=== PATIENT | female | born 1960 | race Caucasian/White ===

== ENCOUNTER 2017-12-20 06:50 | Inpatient (IN) | payer OTHER ==
[~2017-12-20] VITALS: Ht 157.5 cm; Wt 74.4 kg
[2017-12-20 06:56] VITALS: Ht 157.5 cm; Wt 74.4 kg
[2017-12-20 07:30] LABS: BASOPHIL % 0.2 % (0-2); PLATELET COUNT 179 x10^3mcL (130-400)
[2017-12-20 08:06] LABS: RED CELL DISTRIBUTION WIDTH 16.8 % (11.5-14.5)
[2017-12-20 08:35] LABS: CALCIUM 8.4 mg/dL (8.5-10.1); CARBON DIOXIDE 28.3 mmol/L (21-32); CHLORIDE SERUM 106 mmol/L (98-107); CREATININE SERUM 0.7 mg/dL (0.6-1.0); GFR1 > 60 mL/min; GLUCOSE SERUM 208 mg/dL (74-106); POTASSIUM SERUM 4.5 mmol/L (3.5-5.1); SODIUM SERUM 139 mmol/L (136-145)
[2017-12-20 08:39] LABS: ALKALINE PHOSPHATASE 64 U/L (46-116); ALT/SGPT 20 U/L (14-59); AST/SGOT 16 U/L (15-37); BILIRUBIN TOTAL 0.4 mg/dL (0.20-1.00); PHOSPHOROUS 3.4 mg/dL (2.5-4.9)
[2017-12-20 08:44] LABS: ALBUMIN 2.8 g/dL (3.4-5.0); CHOLESTEROL 111 mg/dL (<200); HDL CHOLESTEROL 34 mg/dL (40-60)
[2017-12-20] MEDS ORDERED: LEVOTHYROXINE0.1 M2 PO (09:05)
[2017-12-20] MEDS ORDERED: CLARITIN10 MG PO (09:06)
[2017-12-20 10:04] VITALS: BP 113/58
[2017-12-20 10:25] LABS: MAGNESIUM 1.8 mg/dL (1.8-2.4)
[2017-12-20 10:26] LABS: CHOLESTEROL/HDL RATIO 3.2
[2017-12-20 10:46] LABS: FREE T4 0.9 ng/dL (0.76-1.46); FREE THYROXINE INDEX 2.3 ug/dL (1.4-4.5); T4(THYROXINE) 7.1 ug/dL (4.7-13.3)
[2017-12-20 11:08] LABS: T3 TOTAL 0.58 ng/mL
[2017-12-20 11:39] LABS: microscopic required? YES; urine erythrocyte NEGATIVE (NEGATIVE)
[2017-12-20 12:31] VITALS: BP 106/68
[2017-12-20 12:33] LABS: TOTAL IRON BINDING CAPACITY 277 ug/dL (250-450)
[2017-12-20 12:38] LABS: AMPHETAMINE QUAL UR NONE DETECTED (NEG <=1000)
[2017-12-20 12:44] LABS: IRON 23 ug/dL (50-170)
[2017-12-20 16:55] VITALS: BP 94/50
[2017-12-20 21:02] VITALS: BP 99/61
[2017-12-21 00:01] LABS: RED BLOOD CELLS 2.92 M/mm3 (4.10-5.10)
[2017-12-21 05:31] VITALS: BP 108/65
[2017-12-21 07:23] LABS: CALCIUM 7.9 mg/dL (8.5-10.1); CARBON DIOXIDE 24.2 mmol/L (21-32); CHLORIDE SERUM 106 mmol/L (98-107); CREATININE SERUM 0.7 mg/dL (0.6-1.0); GFR1 > 60 mL/min; GLUCOSE SERUM 136 mg/dL (74-106); POTASSIUM SERUM 3.9 mmol/L (3.5-5.1); SODIUM SERUM 137 mmol/L (136-145)
[2017-12-21 08:22] LABS: BASOPHIL % 0.4 % (0-2)
[2017-12-21 08:25] LABS: PLATELET COUNT 124 x10^3mcL (130-400)
[2017-12-21 12:16] LABS: rbc morphology (normal/abnorm) ABNORMAL (NORMAL)
[2017-12-21 12:17] LABS: schistocyte (helmet cell) 1+
[2017-12-21 13:00] VITALS: BP 123/79
[2017-12-21 16:57] VITALS: BP 102/64
[2017-12-21 17:17] LABS: BASOPHIL % 0.3 % (0-2); PLATELET COUNT 133 x10^3mcL (130-400)
[2017-12-21 21:22] VITALS: BP 122/75
[2017-12-22 06:03] VITALS: BP 106/60
[2017-12-22 06:22] LABS: BASOPHIL % 0.2 % (0-2); PLATELET COUNT 142 x10^3mcL (130-400)
[2017-12-22 06:40] LABS: CALCIUM 7.9 mg/dL (8.5-10.1); CARBON DIOXIDE 27.4 mmol/L (21-32); CHLORIDE SERUM 102 mmol/L (98-107); CREATININE SERUM 0.8 mg/dL (0.6-1.0); GFR1 > 60 mL/min; GLUCOSE SERUM 162 mg/dL (74-106); POTASSIUM SERUM 3.7 mmol/L (3.5-5.1); SODIUM SERUM 135 mmol/L (136-145)
[2017-12-22 07:41] LABS: RED CELL DISTRIBUTION WIDTH 16.1 % (11.5-14.5)
[2017-12-22 09:59] VITALS: BP 117/78
[2017-12-22 14:56] VITALS: BP 117/72
[2017-12-22 18:26] VITALS: BP 86/49
[2017-12-22 21:29] VITALS: BP 100/64
[2017-12-23 06:21] LABS: BASOPHIL % 0.3 % (0-2); PLATELET COUNT 145 x10^3mcL (130-400)
[2017-12-23 06:28] VITALS: BP 85/59
[2017-12-23 06:39] LABS: RED CELL DISTRIBUTION WIDTH 16.6 % (11.5-14.5)
[2017-12-23 06:40] LABS: CALCIUM 8.1 mg/dL (8.5-10.1); CARBON DIOXIDE 28.3 mmol/L (21-32); CHLORIDE SERUM 105 mmol/L (98-107); CREATININE SERUM 0.9 mg/dL (0.6-1.0); GFR1 > 60 mL/min; GLUCOSE SERUM 162 mg/dL (74-106); SODIUM SERUM 139 mmol/L (136-145)
[2017-12-23 11:11] VITALS: BP 97/61
[2017-12-23] MEDS ORDERED: IND10 PO (11:47)
[2017-12-23] MEDS ORDERED: LAC30L PO (11:47)
[2017-12-23] MEDS ORDERED: FER300 PO (11:47)
[2017-12-23] MEDS ORDERED: VITC PO (12:19)
[2017-12-23] MEDS ORDERED: PROTONIX40 MG PO (12:27)
[2017-12-23] MEDS ORDERED: MECLIZINE HYD12.5 MG PO (12:28)
[2017-12-23 13:04] VITALS: BP 97/61
[2017-12-23 13:44] VITALS: BP 92/58
== END 2017-12-23 16:05 | disposition home or self-care (01) ==
LOC: ED 06:50 → DU 09:29
PROVIDERS: Emergency Medicine; Family Medicine; Internal Medicine Gastroenterology
PROC: 30233N1 Transfusion of Nonautologous Red Blood Cells into Peripheral Vein, Percutaneous Approach (ICD-10-PCS; principal; 2017-12-21 09:00)
PROC: 0DB68ZX Excision of Stomach, Via Natural or Artificial Opening Endoscopic, Diagnostic (ICD-10-PCS; 2017-12-21 09:00)
PROC: 0DB68ZZ Excision of Stomach, Via Natural or Artificial Opening Endoscopic (ICD-10-PCS; 2017-12-21 09:00)
PROC: 06L38CZ Occlusion of Esophageal Vein with Extraluminal Device, Via Natural or Artificial Opening Endoscopic (ICD-10-PCS; 2017-12-21 09:00)
DX: K74.69 Other cirrhosis of liver (principal); N17.0 Acute kidney failure with tubular necrosis; I85.11 Secondary esophageal varices with bleeding; E44.0 Moderate protein-calorie malnutrition; E11.65 Type 2 diabetes mellitus with hyperglycemia; S09.90XA Unspecified injury of head, initial encounter; K76.6 Portal hypertension; E03.9 Hypothyroidism, unspecified; E11.9 Type 2 diabetes mellitus without complications; D64.9 Anemia, unspecified; R55 Syncope and collapse; X58.XXXA Exposure to other specified factors, initial encounter; K31.89 Other diseases of stomach and duodenum; K31.7 Polyp of stomach and duodenum; K80.20 Calculus of gallbladder without cholecystitis without obstruction; G98.8 Other disorders of nervous system; K76.0 Fatty (change of) liver, not elsewhere classified; Z68.31 Body mass index [BMI] 31.0-31.9, adult; Y93.89 Activity, other specified; Y92.89 Other specified places as the place of occurrence of the external cause; Y99.8 Other external cause status
CPT/HCPCS: 43235; 82962; 83880; 84439; C9113; J0696; J1200; J1610; J2250; J2310; J2354; J2405; J2916; J3010; J3490; J7030; J7050; P9016; Q0092; Q0163

== ENCOUNTER 2019-03-26 09:43 | Inpatient (IN) | payer OTHER ==
[~2019-03-26] VITALS: Ht 152.4 cm; Wt 82.1 kg
[~2019-03-26 09:43] MED LIST: CLARITIN10 MG PO; FER300 PO; IND10 PO; LAC30L PO; LEVOTHYROXINE0.1 M2 PO; MECLIZINE HYD12.5 MG PO; PROTONIX40 MG PO; VITC PO
[2019-03-26 09:46] VITALS: Ht 152.4 cm; Wt 82.1 kg
--- NOTE | 2019-03-26 09:58 | NUR ---
PT BROUGHT IN BY [facility] WITH C/O HEMATEMESIS THIS AM. AT BEDSIDE PT IS AAOX4. RESPS E/U. SKIN IS PINK, WARM AND DRY. PERRLA. PT PLACED ON MONITOR. BED RAILS UP X1 FOR SAFETY. PT ORIENTED TO ROOM, USE OF CALL SAM AND BED IN LOWEST POSITION. PT IS CALM AND COOPERATIVE. PT AMBULATED FROM GURNEY TO ED BED WITH STEADY GAIT. PT AWAITING MSE.
[2019-03-26 10:40] LABS: BASOPHIL % 0.3 % (0-2)
[2019-03-26 10:45] LABS: CALCIUM 8.2 mg/dL (8.5-10.1); CARBON DIOXIDE 23.3 mmol/L (21-32); CHLORIDE SERUM 108 mmol/L (98-107); CREATININE SERUM 0.8 mg/dL (0.6-1.0); GFR1 > 60 mL/min; GLUCOSE SERUM 178 mg/dL (74-106); POTASSIUM SERUM 4.1 mmol/L (3.5-5.1); SODIUM SERUM 141 mmol/L (136-145)
[2019-03-26 10:49] LABS: PLATELET COUNT 123 x10^3mcL (130-400); RED CELL DISTRIBUTION WIDTH 15.6 % (11.5-14.5)
[2019-03-26 10:50] LABS: ALKALINE PHOSPHATASE 63 U/L (46-116); ALT/SGPT 20 U/L (14-59); AST/SGOT 23 U/L (15-37); BILIRUBIN TOTAL 0.4 mg/dL (0.20-1.00); LIPASE 163 IU/L (73-393); TOTAL PROTEIN, SERUM 7.4 g/dL (6.4-8.2)
--- NOTE | 2019-03-26 11:57 | NUR ---
PT RESTING IN POSITION OF COMFORT. NO ACUTE DISTRESS NOTED, RESPS E/U, SKIN IS PINK, WARM AND DRY. WILL CONTINUE TO MONITOR.
--- NOTE | 2019-03-26 12:08 | NUR ---
HAND-OFF REPORT TO NILSA CA FROM ICU
--- NOTE | 2019-03-26 12:30 | NUR ---
RECEIVED PT FROM ED BY ROBERTA WITH ED NURSE AT BEDSIDE. PT IS AA/O X 4. LUXEMBOURGISH SPEAKING. PT REPORTED VOMITED X 2 WITH "MODERATE BLOOD". PT COMPLAINED RLQ ABD PAIN 4/10. PT BREATHING ON RA, EVEN, UNLABORED. VS: HR 79, BP 101/56, O2 SAT 99% RA, RR 16. WILL CONTINUE TO MONITOR.
[2019-03-26 12:35] LABS: CHOLESTEROL/HDL RATIO 3.9
[2019-03-26 12:52] VITALS: BP 101/56
--- NOTE | 2019-03-26 13:43 | NUR ---
SANDOSTATIN DRIP AND PROTONIX DRIP INTIATED AT THIS TIME PER MD ORDER. WILL CONT TO MONITOR
[2019-03-26 15:14] LABS: microscopic required? NO
[2019-03-26 15:21] LABS: urine erythrocyte NEGATIVE (NEGATIVE)
[2019-03-26 16:22] VITALS: BP 95/55
[2019-03-26 16:22] LABS: CALCIUM 8.1 mg/dL (8.5-10.1); CARBON DIOXIDE 20.9 mmol/L (21-32); CHLORIDE SERUM 111 mmol/L (98-107); CREATININE SERUM 0.7 mg/dL (0.6-1.0); GFR1 > 60 mL/min; GLUCOSE SERUM 143 mg/dL (74-106); POTASSIUM SERUM 4.3 mmol/L (3.5-5.1); SODIUM SERUM 143 mmol/L (136-145)
--- NOTE | 2019-03-26 16:22 | NUR ---
SPOKE WITH ROD VALADEZ AND PROVIDED PATIENT UPDATE. AWAITING RECENT LAB DRAW RESULTS BEFORE ANY NEW ORDERS.
--- NOTE | 2019-03-26 16:45 | NUR ---
SPOKE WITH DR BARKLEY AND REPORTED MOST RECENT LABS. PATIENT TO HAVE EGD TOMORROW AT 1200PM. PATIENT OKAY TO HAVE CLEAR LIQUIDS FOR DINNER AND THEN NPO AT MIDNIGHT. WILL ENDORSE TO PRIMARY RN'S CAMILO.
--- NOTE | 2019-03-26 17:54 | NUR ---
PT REQUESTING TYLENOL FOR ABDOMINAL PAIN, MEDICATED PER EMAR. WILL CONT TO MONITOR
--- NOTE | 2019-03-26 18:47 | NUR ---
PT RESTING IN BED WITH NO APPARENT SIGNS OF DISTRESS. RESPIRATIONS E/U. ON RA, DENIES SOB. NO RESP DISTRESS NOTED. NSR ON MONITOR. PT DENIES CP. ABDOMEN SOFT AND TENDER TO RLQ. PT DENIES VOMITING AT THIS TIME. PT AMBULATORY TO BSC WITH ASSIST. PT ABLE TO REPOSITION SELF. SKIN W/D/I. RAC AND LFA IV IN PLACE, NO ERYTHEMA/INFLAMMATION/DISCOMFORT NOTED. SANDOSTATIN INFUSING AT 25ML/HR AND PROTONIX INFUSING AT 10ML/HR. PT TOLERATING WELL. BED IN LOWEST POSITION. WILL ENDORSE TO ANVILSMITH RN
--- NOTE | 2019-03-26 19:22 | NUR ---
RECIEVED PATIENT AT START OF SHIFT A/O X4. IRISH SPEAKING, FAMILY AT BEDSIDE. PATIENT FOLLOWS COMMANDS, STRENGTH SYMETRICAL. PUPILS +3 PERRLA. NO SOB NOTED ON RA, LUNGS ARE CTAB, CHEST RISE SYMETRICAL SATTING 99%. DENIES COUGH. ON SPEECH LANGUAGE ASSISTANT 1 NSR, NSR 68. NO MURMOR AUSCULTATED. DENIES CHEST PAIN. PULSES ARE MODERATE, NO EDEMA NOTED, CAP REFILL BRISK, SKIN IS WARM DRY AND INTACT. IV TO LFA AND RAC ARE WNL, CDI. PROTONIX INFUSING AT 10 ML/HR, ANTONIA AT 25 ML/HR, AND NS AT 100ML/HR. ABDOMEN IS SOFT AND ROUND, BS ACTIVE. NO TENDERNESS TO PALPATION. PATIENT IS CALM AND COOPERATIVE. BED LOCKED AND IN LOWEST POSITION. CALL LIGHT AND BEDSIDE TABLE WITHIN REACH.
[2019-03-26 20:00] VITALS: BP 107/61
[2019-03-27] VITALS (7 sets, daily range): BP systolic 86–123; BP diastolic 48–78
[2019-03-27 05:06] LABS: CALCIUM 8.2 mg/dL (8.5-10.1); CHLORIDE SERUM 111 mmol/L (98-107); CREATININE SERUM 0.8 mg/dL (0.6-1.0); GFR1 > 60 mL/min; GLUCOSE SERUM 144 mg/dL (74-106); POTASSIUM SERUM 3.9 mmol/L (3.5-5.1); SODIUM SERUM 143 mmol/L (136-145)
[2019-03-27 05:29] LABS: BASOPHIL % 0.5 % (0-2)
[2019-03-27 05:30] LABS: PLATELET COUNT 95 x10^3mcL (130-400); RED CELL DISTRIBUTION WIDTH 15.6 % (11.5-14.5)
--- NOTE | 2019-03-27 06:47 | NUR ---
PATIENT IS AWAKE, A/O X4, NO SOB ON RA SATTING 97%, NSR 68, DENIES PAIN. NO BMS THIS SHIFT. IV TO LFA AND RAC ARE PATENT AND INTACT. PROTONIX INFUSING AT 10 ML/HR, ANTONIA AT 25 ML/HR, AND NS AT 100 ML/HR. SAFETY AND COMFORT MAINTAINED THROUGH OUT SHIFT. CALL LIGHT AND BEDSIDE TABLE WITHIN REACH. WILL ENDORSE CARE TO DAYSHIFT NURSE.
--- NOTE | 2019-03-27 07:10 | NUR ---
RECIEVED REPORT FROM SUPRIYA ASH. ALL QUESTIONS ANSWERED AND ADDRESSED. RECIEVED PT AAOX4. ABLE TO FOLLOW COMMANDS. RESPONDS TO VERBAL, TACTILE, AND PAINFUL STIMULUS. NO FACIAL DROOP NOTED. SPEECH IS CLEAR AND APPROPRIATE. PERRL. ON ROOM AIR. BREATHING E/U. SYMMETRICAL CHEST WALL EXPANSION NOTED. NO S/S OF RESP DISTRESS NOTED. SKIN IS WARM/DRY TO TOUCH, PEGUERO/BROWN IN COLOR. NO S/S OF CP NOTED. PALPABLE PULSES X4. TRACE EDEMA NOTED TO BLE. PIV TO LFA AND RAC INTACT, PORTS PATENT, DRESSINGCDI. NS INFUSING @ 100ML/HR, SANDOSTATIN @ 25 ML/HR, PROTONIX @ 10 ML/HR. ABD IS TENDER AND ROUNDED. NO N/V AT THIS TIME. SKIN INTACT. NO OPEN WOUNDS NOTED. JOINTS INTACT. NO CONTRACTURES. X3 SIDE RAILS UP, BED IN LOWEST POSITION, CALL LIGHT WITHIN REACH.
--- NOTE | 2019-03-27 09:07 | NUR ---
GI TEAM AT BEDSIDE PREPARING FOR EGD.
--- NOTE | 2019-03-27 09:37 | NUR ---
EGD COMPLETED BY DR. LARSEN AT THIS TIME.
--- NOTE | 2019-03-27 10:09 | NUR ---
PER DR. LARSEN PT CLEARED FOR MST TRANSFER, WILL NOTIFY COVERING CUTTING INSPECTOR ROD. PRIMARY RN AWARE.
--- NOTE | 2019-03-27 16:15 | NUR ---
REPORT GIVEN TO ROLY FOR TRANSFER TO MED-SURG BED 204-B. ALL QUESTIONS ANSWERED AND ADDRESSED. WILL ENDORSE CARE.
--- NOTE | 2019-03-27 16:24 | NUR ---
PT TRANSFERRED TO 203B VIA WHEELCHAIR ACCOMPANIED BY STUDENT RN AND YVONNE RN. VS STABLE. NO SOB OR CP STATED. NO COMPLICATIONS AT THIS TIME.
--- NOTE | 2019-03-27 16:46 | NUR ---
RECEIVED PT AAOX4. RESP EVEN AND UNLABORED. LUNG SOUNDS CTA. NO COUGH OR SOB. NORMAL S1S2 NOTED. ABDOMEN SOFT, ROUND, NONDISTENDED, TENDER UPON PALPATION. PT DENIES N/V. SKIN CDI. NO EDEMA NOTED. PERIPHERAL PULSES MODERATELY PALPABLE. DENIES NUMBNESS AND TINGLING. IV CATH TO [facility] PATENT, SITE WNL. SANDOSTATIN RUNNING TO [facility] AT 25ML/HR. IVF RUNNING TO [facility], SITE WNL. PT DENIES PAIN AND DISCOMFORT AT THIS TIME. PT ORIENTED TO ROOM AND CALL LIGHT. SCDS IN PLACE. CALL LIGHT WITHIN REACH. BED IN LOWEST POSITION.
--- NOTE | 2019-03-27 17:06 | NUR ---
RESP EVEN AND UNLABOERED. DUE MEDS GIVEN AND TOLERATED WELL. B/P 120/72, HR 79. PT DENIES PAIN AT THIS TIME. CALL LIGHT WITHIN REACH.
--- NOTE | 2019-03-27 17:14 | NUR ---
RECEIVED PT AAOX4. RESP EVEN AND UNLABORED. LUNG SOUNDS CTA. NO COUGH OR SOB. NORMAL S1S2 NOTED. ABDOMEN SOFT, ROUND, NONDISTENDED, TENDER UPON PALPATION. PT DENIES N/V. SKIN CDI. NO EDEMA NOTED. PERIPHERAL PULSES MODERATELY PALPABLE. DENIES NUMBNESS AND TINGLING. IV CATH TO [facility] PATENT, SITE WNL. SANDOSTATIN RUNNING TO [facility] AT 25ML/HR. IVF RUNNING TO [facility], SITE WNL. PT DENIES PAIN AND DISCOMFORT AT THIS TIME. PT ORIENTED TO ROOM AND CALL LIGHT. SCDS IN PLACE. CALL LIGHT WITHIN REACH. BED IN LOWEST POSITION.
--- NOTE | 2019-03-27 18:42 | NUR ---
PT IS AAOX4. RESP EVEN AND UNLABORED. PT HAS C/O BLOOD STOOL. DR. LARSEN MADE AWARE. DENIES PAIN AND DISCOMFORT. IV CATH TO RAC PATENT, SITE WNL. IV CATH TO LFA PATENT SITE WNL. NO DISTRESS NOTED. FAMILY AT BEDSIDE. CALL LIGHT WITHIN REACH. BED IN LOWEST POSITION. WILL ENDORSE ALL CARE TO NOC RN.
--- NOTE | 2019-03-27 19:30 | NUR ---
PT SEEN, RESTING IN BED, ALERT AND ORIENTED X 4 AND VERY VERBALLY RESPONSIVE, MOSTLY RUSSIAN SPEAKING, DENIES HEADACHE OR DIZZINESS, BREATHING EVEN AND UNLABORED, LUNG SOUNDS CLEAR, ON ROOM AIR WITH NO RESP DISTRESS NOTED, IVF INFUSING WELL, SANDOSTATIN @ 25 ML/HR, PULSES PALPABLE, NO EDEMA NOTED, AMBULATORY WITH STEADY GAIT, ABD SOFT WITH ACTIVE BS, NO BM AT THIS TIME, DENIES ABD PAIN, VOIDING FREELY, NO DISTRESS NOTED, WILL KEEP TO MONITOR.
[2019-03-28 05:28] VITALS: BP 110/64
--- NOTE | 2019-03-28 05:40 | NUR ---
PT ASLEEP BUT EASILY AROUSABLE, SLEPT ON AND OFF WHOLE NIGHT, IVF INFUSING WELL TO RAC, SANDOSTATIN DRIP INFUSING @ 25 ML/HR, OLD IV SITE TO LFA INFILTRATED, IV DC'D AND CATH INTACT, NO BLOODY STOOL NOTED DURING THE SHIFT, MORNING BLOOD SUGAR- 148 MG/DL, NPO NOW FOR US ABD, NO DISTRESS NOTED, WILL KEEP TO MONITOR.
[2019-03-28 06:21] LABS: CALCIUM 8.5 mg/dL (8.5-10.1); CARBON DIOXIDE 28.6 mmol/L (21-32); CHLORIDE SERUM 110 mmol/L (98-107); CREATININE SERUM 0.8 mg/dL (0.6-1.0); GFR1 > 60 mL/min; GLUCOSE SERUM 151 mg/dL (74-106); POTASSIUM SERUM 3.6 mmol/L (3.5-5.1); SODIUM SERUM 144 mmol/L (136-145)
[2019-03-28 06:26] LABS: PLATELET COUNT 109 x10^3mcL (130-400); RED CELL DISTRIBUTION WIDTH 15.9 % (11.5-14.5)
--- NOTE | 2019-03-28 07:27 | NUR ---
PT SEEN, RESTING IN BED, ALERT AND ORIENTED X 4 AND VERY VERBALLY RESPONSIVE, MOSTLY [place] SPEAKING, DENIES HEADACHE OR DIZZINESS, BREATHING EVEN AND UNLABORED, LUNG SOUNDS CLEAR, ON ROOM AIR WITH NO RESP DISTRESS NOTED, IVF INFUSING WELL, SANDOSTATIN @ 25 ML/HR, PULSES PALPABLE, NO EDEMA NOTED, AMBULATORY WITH STEADY GAIT, ABD SOFT WITH ACTIVE BS, NO BM AT THIS TIME, DENIES ABD PAIN, VOIDING FREELY, NO DISTRESS NOTED, WILL KEEP TO MONITOR.
[2019-03-28 08:54] VITALS: BP 123/76
--- NOTE | 2019-03-28 12:07 | NUR ---
BEDSIDE HANDOFF REPORT GIVEN TO JAYME-RN, ALL QUESTIONS ANSWERED AND CONCERNS ADDRESSED.
--- NOTE | 2019-03-28 12:18 | NUR ---
ASSUMED CARE OF PATIENT. PT AWAKE, ALERT. A/OX4. PT REPORTS HEADACHE 4/10 TYLENOL ADMINISTERED ORDERED PRN (SEE EMAR). DUE MEDS ADMINISTERED ORDERED. PT REPORTS PAIN FROM PROCEDURE IN THROAT. WILL CONTINUE TO MONITOR.
--- NOTE | 2019-03-28 13:30 | NUR ---
PT SLEEPING AT THIS TIME. NO DISCOMFORT NOTED.
[2019-03-28 16:55] VITALS: BP 108/78
--- NOTE | 2019-03-28 17:34 | NUR ---
DUE MEDS ADMINISTERED ORDERED. INDERAL HELD DUE TO LOW BP. FAMILY AT BEDSIDE. PT REPORTS PAIN IN ESOPHAGUS WHEN SWALLOWING. PT REPORTS PAIN IN ABDOMEN 4/10 BUT TOLERABLE AT THIS TIME. WILL CONTINUE TO MONITOR.
--- NOTE | 2019-03-28 18:24 | NUR ---
NO ACUTE DISTRESS NOTED AT THIS TIME. ALL NEEDS TENDED TO THROUGHOUT SHIFT. WILL CONTINUE TO MONITOR AND ENDORSE CARE TO DIRECTOR BUSINESS DEVELOPMENT.
--- NOTE | 2019-03-28 20:05 | NUR ---
PATIENT RECEIVED DURING BEDSIDE HANDS OFF WITH OUT GOING NURSE, PATIENT IS ALERT AND ORIENTED X4, SPEECH CLEAR VIETNAMESE SPEAKING BUT ABLE TO VERBALIZED NEEDS. DENIED ANY PAIN NOR DISCOMFORTS. RT FA HEPLOCK SITE NOTED CATH ALMOST OUT, REMOVED AND WILL INSERT NEW SITE.ABDOMEN SOFT NON DISTENDE ACTIVE BS ALL QUAD, PATIENT CLAIMED HAD BM TODAY BUT NO NOTED BLOOD, TOLERATING DIET, DNEIES N/V. ON ROOM AIR . DENIED CHEST PAINS, HR=83BPM. NON TELE APTIENT, MED/SURG. WILL CONTINUE TO MONITOR.
[2019-03-28 20:11] VITALS: BP 122/76
--- NOTE | 2019-03-28 21:46 | NUR ---
SCHEDULED MEDS ADMINISTERED,PATIENT INFORMED ABOUT EACH MEDS ACTIONS AND PURPOSES PRIOR. TOOK PILLS WELL.
[2019-03-29 05:50] VITALS: BP 117/66
[2019-03-29 06:24] LABS: BASOPHIL % 0.3 % (0-2)
--- NOTE | 2019-03-29 06:33 | NUR ---
PATIENT SLEPT GOOD AND RESTED WELL DURING THE SHIFT, HAD COMPLAINED OF HEMORROIDAL PAIN THIS AM, TYLENOL 2 TABS PO GIVEN. AMBULATORY WITH STEADY GAIT. MOVED HER BOWEL DURING SHIFT DESCRIBED IT LOOSE BROWN NO BLOOD.SAFETY PRECAUTIONS OBSERVED. WILL ENDORSE CONTINUITY OF CARE TO INCOMING NURSE.
[2019-03-29 06:42] LABS: CALCIUM 8.6 mg/dL (8.5-10.1); CARBON DIOXIDE 25.4 mmol/L (21-32); CHLORIDE SERUM 107 mmol/L (98-107); CREATININE SERUM 0.7 mg/dL (0.6-1.0); GFR1 > 60 mL/min; GLUCOSE SERUM 136 mg/dL (74-106); POTASSIUM SERUM 3.3 mmol/L (3.5-5.1); SODIUM SERUM 143 mmol/L (136-145)
[2019-03-29 06:54] LABS: PLATELET COUNT 112 x10^3mcL (130-400); RED CELL DISTRIBUTION WIDTH 15.3 % (11.5-14.5)
--- NOTE | 2019-03-29 07:29 | NUR ---
BEDSIDE HANDS OFF PERFORMED WITH INCOMING NURSE SEJAL-NILSA.
--- NOTE | 2019-03-29 07:30 | NUR ---
RECEIVED PATIENT RESTING IN BED COMFORTABLY A/O X4, CLEAR SPEECH, NO NEURO DEFICITS NOTED. BREATHING EVEN AND UNLABBORED ON ROOM AIR, DENIES SOB, NO DISTRESS NOTED, DENIES ANY PAIN. IV TO RFA H/L INTACT AND PATENT FREE FROM REDNESS AND INFILTRATION. PATIENT IS CALM WITH CARE. INSTRUCTED TO CALL FOR ASSISTANCE IF NEEDED. SAFETY PRECAUTIONS MAINTAINED. WILL MONITOR.
--- NOTE | 2019-03-29 08:20 | NUR ---
SEAN HOSE HANDLER AT BEDSIDE TO SPEAK WITH PATIENT REGARDING PLAN OF CARE: PATIENT IS STABLE FOR DISCHARGE HOME TODAY, PATIENT VERBALIZED UNDERSTANDING. ESAN HOSE HANDLER MADE AWARE PATIENT C/O HEMORROIDS, ALL QUESTIONS AND CONCERNS ADDRESSED, NO NEW ORDERS RECEIVED. WILL MONITOR.
[2019-03-29] MEDS ORDERED: IND20 PO (08:35)
[2019-03-29] MEDS ORDERED: XIFAXAN550 M1 PO (08:35)
[2019-03-29] MEDS ORDERED: ACT30 PO (08:35)
[2019-03-29 09:31] VITALS: BP 113/59
[2019-03-29 10:11] VITALS: BP 113/59
--- NOTE | 2019-03-29 10:50 | NUR ---
PATIENT IS STABLE FOR DISCHARGE HOME. DISCHARGE INSTRUCTIONS, PRESCRIPTION, BELONGINGS LIST AND EDUCATION REVIEWED WITH PATIENT. PATIENT VERBALIZED UNDERSTANDING TO FOLLOW UP WITH PCP AND DR. LARSEN, PER PATIENT SHE HAS AN APPT WITH DR. LARSEN ON 05/13/19. ALL QUESTIONS AND CONCERNS ADDRESSED, PATIENT STATED SHE IS GOING TO CALL HER SON TO PICK HER UP. INFORMED PATIENT TO NOTIFY STAFF WHEN SON ARRIVES. SAFETY PRECAUTIONS MAINTAINED, WILL MONITOR.
--- NOTE | 2019-03-29 12:12 | NUR ---
PATIENTS SON IS AT BEDSIDE, PATIENT IS STABLE FOR DISCHARGE HOME. IV TO RFA REMOVED, CATH INTACT. ID BANDS REMOVED. PATIENT ASSISTED DOWN TO LOBBY VIA WHEELCHAIR ACCOMPANIED BY NURSE AID AND FAMILY. ALL PERSONAL BELONGINGS SENT HOME WITH PATIENT.
== END 2019-03-29 12:12 | disposition home or self-care (01) ==
LOC: ED 09:43 → IC 11:18 → EDBEDREQSVC 11:27 → IC 12:25 → MU 03-27 16:32
PROVIDERS: Emergency Medicine; Internal Medicine; Internal Medicine Gastroenterology; ADMIT Internal Medicine
PROC: 0DB78ZX Excision of Stomach, Pylorus, Via Natural or Artificial Opening Endoscopic, Diagnostic (ICD-10-PCS; principal; 2019-03-27 07:30)
PROC: 06L38CZ Occlusion of Esophageal Vein with Extraluminal Device, Via Natural or Artificial Opening Endoscopic (ICD-10-PCS; 2019-03-27 07:30)
DX: K76.6 Portal hypertension (principal); I85.11 Secondary esophageal varices with bleeding; D68.69 Other thrombophilia; E44.0 Moderate protein-calorie malnutrition; K74.69 Other cirrhosis of liver; E11.65 Type 2 diabetes mellitus with hyperglycemia; E03.9 Hypothyroidism, unspecified; E66.9 Obesity, unspecified; K31.89 Other diseases of stomach and duodenum; K76.0 Fatty (change of) liver, not elsewhere classified; Z68.33 Body mass index [BMI] 33.0-33.9, adult; Z79.84 Long term (current) use of oral hypoglycemic drugs
CPT/HCPCS: 43235; 82962; C9113; G0378; J0171; J1200; J1610; J2250; J2310; J2354; J2405; J3010; J3490; J7030; J8597; Q0092

== ENCOUNTER 2019-05-24 12:43 | Emergency (ER) | payer OTHER ==
[~2019-05-24] VITALS: Ht 152.4 cm; Wt 79.4 kg
[~2019-05-24 12:43] MED LIST changes: +ACT30 PO; +IND20 PO; +XIFAXAN550 M1 PO
[2019-05-24 12:54] VITALS: BP 128/70; Ht 152.4 cm; Wt 79.4 kg
[2019-05-24 14:22] LABS: PLATELET COUNT 138 x10^3mcL (130-400)
[2019-05-24 14:35] LABS: RED CELL DISTRIBUTION WIDTH 16.5 % (11.5-14.5)
[2019-05-24 15:58] LABS: BAND NEUTROPHIL 0 % (0-10); BASOPHIL 0 % (0-2); MONOCYTE 14 % (0-7); SEGMENTED NEUTROPHILS 49 % (37-75)
[2019-05-24 15:59] LABS: rbc morphology (normal/abnorm) NORMAL (NORMAL)
== END 2019-05-24 15:46 | disposition home or self-care (01) ==
LOC: ED 12:43
PROVIDERS: Specialist
DX: D64.9 Anemia, unspecified (principal); E11.9 Type 2 diabetes mellitus without complications; E03.9 Hypothyroidism, unspecified; Z98.890 Other specified postprocedural states
CPT/HCPCS: 36415

== ENCOUNTER 2019-11-24 07:38 | Day surgery (SDC) | payer OTHER ==
[~2019-11-24] VITALS: Ht 157.5 cm; Wt 83.0 kg
[2019-11-24 08:26] VITALS: BP 113/72
[2019-11-24 14:36] VITALS: BP 129/57
== END 2019-11-24 14:10 | disposition home or self-care (01) ==
LOC: DS 07:38 → GI 10:30 → OR 10:30 → DS 14:10
DX: K74.69 Other cirrhosis of liver (principal); K76.6 Portal hypertension; K21.9 Gastro-esophageal reflux disease without esophagitis; E66.8 Other obesity; Z68.32 Body mass index [BMI] 32.0-32.9, adult; Z98.890 Other specified postprocedural states; Z79.899 Other long term (current) drug therapy; K31.7 Polyp of stomach and duodenum; D64.9 Anemia, unspecified; I85.11 Secondary esophageal varices with bleeding; D50.0 Iron deficiency anemia secondary to blood loss (chronic)
CPT/HCPCS: 43235; J1200; J1610; J2250; J2310; J2405; J3010; J3490

== ENCOUNTER 2020-05-28 17:28 | Emergency (ER) | payer OTHER ==
[~2020-05-28] VITALS: Ht 152.4 cm; Wt 81.6 kg
[2020-05-28 18:24] VITALS: Ht 152.4 cm; Wt 81.6 kg
[2020-05-28 20:41] LABS: BASOPHIL % 0.3 % (0-2); RED CELL DISTRIBUTION WIDTH 14.2 % (11.5-14.5)
[2020-05-28 20:43] LABS: PLATELET COUNT 103 x10^3mcL (130-400)
[2020-05-28 20:45] LABS: CALCIUM 9.7 mg/dL (8.5-10.1); CARBON DIOXIDE 25.6 mmol/L (21-32); CHLORIDE SERUM 104 mmol/L (98-107); CREATININE SERUM 0.8 mg/dL (0.6-1.0); GFR1 > 60 mL/min; GLUCOSE SERUM 156 mg/dL (74-106); POTASSIUM SERUM 4.1 mmol/L (3.5-5.1); SODIUM SERUM 136 mmol/L (136-145)
[2020-05-28 20:53] LABS: ALBUMIN 3.4 g/dL (3.4-5.0); ALKALINE PHOSPHATASE 67 U/L (46-116); ALT/SGPT 17 U/L (14-59); AST/SGOT 20 U/L (15-37); BILIRUBIN TOTAL 1.2 mg/dL (0.20-1.00); LIPASE 118 IU/L (73-393); TOTAL PROTEIN, SERUM 8.6 g/dL (6.4-8.2)
[2020-05-29 02:44] VITALS: BP 98/59
== END 2020-05-28 23:06 | disposition home or self-care (01) ==
LOC: ED 17:28
PROVIDERS: Emergency Medicine
DX: R10.815 Periumbilic abdominal tenderness (principal); R31.9 Hematuria, unspecified; R11.2 Nausea with vomiting, unspecified; R19.7 Diarrhea, unspecified; I10 Essential (primary) hypertension; E11.9 Type 2 diabetes mellitus without complications; E03.9 Hypothyroidism, unspecified
CPT/HCPCS: J1885; J2405